=== PATIENT | female | born 1960 | race African-American/Black ===

== ENCOUNTER 2017-05-16 18:56 | Emergency (ER) | payer OTHER ==
[~2017-05-16] VITALS: Ht 149.9 cm; Wt 79.4 kg
[2017-05-16 19:15] VITALS: BP 145/81
[2017-05-16] MEDS ORDERED: ACETAMINOPHEN 325 MG TABLET. PO ONE (19:45)
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
== END 2017-05-16 20:52 | disposition home or self-care (01) ==
LOC: ER 18:56
DX: S06.0X0A Concussion without loss of consciousness, initial encounter (principal); M54.2 Cervicalgia; M54.5 Low back pain; E78.00 Pure hypercholesterolemia, unspecified; F41.9 Anxiety disorder, unspecified; I10 Essential (primary) hypertension; Z90.710 Acquired absence of both cervix and uterus; Z88.0 Allergy status to penicillin; Z88.6 Allergy status to analgesic agent; V87.0XXA Person injured in collision between car and two- or three-wheeled powered vehicle (traffic), initial encounter; Y93.89 Activity, other specified; Y92.89 Other specified places as the place of occurrence of the external cause; Y99.8 Other external cause status
CPT/HCPCS: 70450; 72125; 99284-25

== ENCOUNTER 2018-08-18 15:47 | Emergency (ER) | payer OTHER ==
[~2018-08-18] VITALS: Ht 154.9 cm; Wt 74.8 kg
[~2018-08-18 15:47] MED LIST: ALPR1TAB6 PO; BENZ0.5T32 PO; CLON0.1T PO; LIDO700A39 TD; NORT10CA PO; PARO40TA3 PO; QUET50TA5 PO; TRAM50TA PO; abilify
[2018-08-18 16:40] VITALS: BP 149/74
--- NOTE | 2018-08-18 17:19 | RAD ---
CT Head W/O Contrast: History: HEAD/NECK PAIN AFTER FALL Comparison: December 13, 2017 Axial images were obtained without contrast. The rivero and white matter appears normal and symmetrical for the patients age. There is no mass effect, extraaxial fluid collections or hydrocephalus. There is no gross bleed. There is no focal loss of rivero-white matter distinction to suggest acute ischemia, i.e. stroke. Impression: No acute findings. End impression CT C-Spine without contrast: Clinical History: HEAD/NECK PAIN AFTER FALL Technique: Axial helical images of the cervical spine were obtained without contrast, axial coronal and sagittal reconstruction was performed. Findings: There is no loss of vertebral body stature. There is no prevertebral soft tissue swelling. The vertebral bodies are well aligned. There is straightening of the normal cervical lordosis which can be positional or could be chronic. The C1-C2 relationship is normal. The visualized osseous structures appear normal. Evaluation of the central canal is limited without contrast. There is multiple posterior disc bulges resulting in flattening of the thecal sac. There does not appear to be gross flattening of the cervical cord. Impression: No acute findings. Clinical correlation suggested. PQRS Compliance Statement: One or more of the following individualized dose reduction techniques were utilized for this examination: 1. Automated exposure control 2. Adjustment of the mA and/or kV according to patient size 3. Use of iterative reconstruction technique Electronically signed by: Gurpreet Jurado III, MD (08/18/2018 5:16 PM) [facility]
--- NOTE | 2018-08-18 18:23 | PHYS DOC ---
Past Medical History Past Medical History: Anxiety, Asthma, High Cholesterol, Hypertension, Schizophrenia, Other Additional Past Medical Histor: "heart blockages" Past Surgical History: Hysterectomy, Tonsillectomy, Other Additional Past Surgical Histo: "needs stents" Alcohol Use: None Drug Use: Marijuana Adult General Chief Complaint Chief Complaint: MULTIPLE TRAUMA/FALL HPI HPI Patient is a 58 year old female who presents to the ER with complaints of L shoulder, L upper arm, neck, and low back pain that radiates into her left leg after falling down 12 concrete stairs 2 days ago. Pt states when she landed she was face first striking her forehead on the ground. She reports an unwitnessed LOC and is unsure of the duration. She denies any nausea, vomiting, vison changes, or headache. Currently, she rates her discomfort at a 8 out of 10 on the pain scale. She states she took her last 2 tablets of tylenol #3 6 hours ago. The medication helped for a short period of time. Patient reports a previous tear in her left rotator cuff. Review of Systems Review of Systems Constitutional: Denies fever or chills [] Eyes: Denies change in visual acuity, redness, or eye pain [] HENT: Denies nasal congestion or sore throat [] Respiratory: Denies shortness of breath [] Cardiovascular: Denies chest pain GI: Denies abdominal pain, nausea, vomiting Musculoskeletal: reports left shoulder, left upper arm, and low back pain that radiates to left leg Integument: Denies rash or skin lesions [] Neurologic: Denies headache, focal weakness or sensory changes [] All other systems were reviewed and found to be within normal limits, except as documented in this note. Allergies Allergies Allergies Coded Allergies Type Severity Reaction Last Updated Verified Penicillins Allergy Intermediate 07/23/14 Yes aspirin Allergy Intermediate HIVES 07/23/14 Yes Physical Exam Physical Exam Constitutional: Well developed, well nourished, no acute distress, non-toxic appearance. [] HENT: Normocephalic, atraumatic, bilateral external ears normal, oropharynx moist, no oral exudates, nose normal. [] Eyes: PERRLA, EOMI, conjunctiva normal, no discharge. [] Neck: limited ROM due to pain, diffuse bony tenderness with no palpable deformity, supple, no stridor. [] Cardiovascular:Heart rate regular rhythm, no murmur [] Lungs & Thorax: Bilateral breath sounds clear to auscultation [] Skin: Warm, dry, no erythema, no rash, no bruising, no abrasions Back: No bony tenderness; lateral low back tenderness, Extremities: No cyanosis, no clubbing, ROM intact, no edema, no bruising; tenderness with palpation of left humerus, no palpable deformity [] Neurologic: Alert and oriented X 3, normal motor function, normal sensory function, no focal deficits noted. [] Psychologic: Affect normal, judgement normal, mood normal. [] Current Patient Data Vital Signs Vital Signs Date Time Temp Pulse Resp B/P (MAP) Pulse Ox O2 Delivery O2 Flow Rate FiO2 08/18/18 16:40 97.6 73 16 149/74 (99) 98 Room Air 97.6 EKG EKG [] Radiology/Procedures Radiology/Procedures PROCEDURE: CT HEAD AND CERVICAL SPINE WO CT Head W/O Contrast: History: HEAD/NECK PAIN AFTER FALL Comparison: December 13, 2017 Axial images were obtained without contrast. The rivero and white matter appears normal and symmetrical for the patients age. There is no mass effect, extraaxial fluid collections or hydrocephalus. There is no gross bleed. There is no focal loss of rivero-white matter distinction to suggest acute ischemia, i.e. stroke. Impression: No acute findings. CT C-Spine without contrast: Clinical History: HEAD/NECK PAIN AFTER FALL Technique: Axial helical images of the cervical spine were obtained without contrast, axial coronal and sagittal reconstruction was performed. Findings: There is no loss of vertebral body stature. There is no prevertebral soft tissue swelling. The vertebral bodies are well aligned. There is straightening of the normal cervical lordosis which can be positional or could be chronic. The C1-C2 relationship is normal. The visualized osseous structures appear normal. Evaluation of the central canal is limited without contrast. There is multiple posterior disc bulges resulting in flattening of the thecal sac. There does not appear to be gross flattening of the cervical cord. Impression: No acute findings. Clinical correlation suggested.[] PROCEDURE: CHEST PA & LATERAL PA and lateral chest radiographs 08/18/2018 CLINICAL HISTORY: Patient fell down flight of stairs 2 days ago with chest pain. PA and lateral digital radiographs of chest were obtained. Comparison study is dated 12/16/2017. The cardiac silhouette is borderline enlarged. The thoracic aorta is mildly tortuous. No acute pulmonary infiltrate is seen. No pleural effusion or pneumothorax is noted. Minimal degenerative changes are seen involving the thoracic spine. The osseous structures are grossly intact. IMPRESSION: No acute abnormality is seen. PROCEDURE: LUMBAR SPINE 2-3V Three-view lumbar spine radiographs 08/18/2018 CLINICAL HISTORY: Fall down flight of stairs with low back pain. AP and 2 lateral digital radiographs of the lumbar spine were obtained. Minimal S-shaped curvature of the thoracolumbar spine is seen. No fracture or subluxation of the lumbar vertebrae is seen. Degenerative changes are seen involving the lumbar disc spaces consisting of vertebral endplate sclerosis and minimal anterior and posterior vertebral body osteophyte formation. Degenerative changes are seen involving the facet joints throughout the mid and lower lumbar spine. Calcifications are seen within the pelvis consistent with phleboliths. IMPRESSION: No fracture or subluxation of the lumbar vertebrae seen. PROCEDURE: HUMERUS LEFT Two-view left humerus radiographs 08/18/2018 CLINICAL HISTORY: Fall with injury to the left humerus. AP and lateral digital radiographs of the left humerus were obtained. There is diffuse osteopenia of the visualized bony structures. No acute fracture or dislocation of the left humerus is seen. No radiopaque foreign body is noted. IMPRESSION: No acute fracture or dislocation is seen. Course & Med Decision Making Course & Med Decision Making Pertinent Labs and Imaging studies reviewed. (See chart for details) DX: fall down stairs, cervical pain, low back pain radiating to left leg, and left humerus pain Xrays of lumbar spine, chest, and left humerus were negative for any acute fracture or dislocation, CT head and neck was negative for any acute bleed or fracture. Pt was prescribed naproxen and flexeril. Encouraged to apply ice or heat to sore areas, activity as tolerated, and follow-up with PCP for further evaluation. Pt verbalized an understanding of discharge, medications, follow-up , home care, and return to ED precautions, was in agreement with POC. [] Staff Physician Addendum: I was working in the ER during the course of this patient's visit. I was available for consultation as needed, but I was not directly involved in the care of this patient. Dragon Disclaimer Dragon Disclaimer This electronic medical record was generated, in whole or in part, using a voice recognition dictation system. Departure Departure Impression: Primary Impression: Fall down stairs Additional Impressions: Low back pain radiating to left leg Pain of left humerus Cervical spine pain Disposition: 01 HOME, SELF-CARE Condition: STABLE Referrals: UNKNOWN PCP NAME (PCP) Patient Instructions: Back Pain, Adult, [id number], Contusion, Gugb-[id number], Fall Prevention and Home Safety, [id number] Additional Instructions: Fill prescriptions and use as directed, apply ice or heat to sore areas for discomfort. Follow up with your doctor this week for re-evaluation. Return to the ER if symptoms worsen. Scripts Naproxen (NAPROXEN) 375 Mg Tablet 375 MG PO BID PRN for pa for 10 Days, #20 TAB 0 Refills Prov: LIZZETH DANIEL APRN 08/18/18 Cyclobenzaprine Hcl (CYCLOBENZAPRINE HCL) 10 Mg Tablet 10 MG PO TID PRN for MUSCLE PAIN for 7 Days, #21 TAB 0 Refills Prov: LIZZETH DANIEL APRN 08/18/18 Problem Qualifiers Primary Impression: Fall down stairs Encounter type: initial encounter Qualified Codes: W10.8XXA - Fall (on) ( from) other stairs and steps, initial encounter LIZZETH DANIEL APRN Aug 18, 2018 18:23 LEXX AVENDAÑO MD Aug 21, 2018 06:18
[2018-08-18] MEDS ORDERED: CYCL10TA2 PO (18:50)
[2018-08-18] MEDS ORDERED: NAPR-695 PO (18:50)
--- NOTE | 2018-08-18 19:15 | RAD ---
PA and lateral chest radiographs 08/18/2018 CLINICAL HISTORY: Patient fell down flight of stairs 2 days ago with chest pain. PA and lateral digital radiographs of chest were obtained. Comparison study is dated 12/16/2017. The cardiac silhouette is borderline enlarged. The thoracic aorta is mildly tortuous. No acute pulmonary infiltrate is seen. No pleural effusion or pneumothorax is noted. Minimal degenerative changes are seen involving the thoracic spine. The osseous structures are grossly intact. IMPRESSION: No acute abnormality is seen. Electronically signed by: John Ambriz MD (08/18/2018 7:11 PM) [facility]
--- NOTE | 2018-08-18 19:27 | RAD ---
Two-view left humerus radiographs 08/18/2018 CLINICAL HISTORY: Fall with injury to the left humerus. AP and lateral digital radiographs of the left humerus were obtained. There is diffuse osteopenia of the visualized bony structures. No acute fracture or dislocation of the left humerus is seen. No radiopaque foreign body is noted. IMPRESSION: No acute fracture or dislocation is seen. Electronically signed by: John Ambriz MD (08/18/2018 7:23 PM) [facility]
--- NOTE | 2018-08-18 19:28 | RAD ---
Three-view lumbar spine radiographs 08/18/2018 CLINICAL HISTORY: Fall down flight of stairs with low back pain. AP and 2 lateral digital radiographs of the lumbar spine were obtained. Minimal S-shaped curvature of the thoracolumbar spine is seen. No fracture or subluxation of the lumbar vertebrae is seen. Degenerative changes are seen involving the lumbar disc spaces consisting of vertebral endplate sclerosis and minimal anterior and posterior vertebral body osteophyte formation. Degenerative changes are seen involving the facet joints throughout the mid and lower lumbar spine. Calcifications are seen within the pelvis consistent with phleboliths. IMPRESSION: No fracture or subluxation of the lumbar vertebrae seen. Electronically signed by: John Ambriz MD (08/18/2018 7:25 PM) [facility]
== END 2018-08-18 19:00 | disposition home or self-care (01) ==
LOC: ER 15:47
DX: M25.512 Pain in left shoulder (principal); G89.11 Acute pain due to trauma; M54.2 Cervicalgia; M54.5 Low back pain; E78.00 Pure hypercholesterolemia, unspecified; J45.909 Unspecified asthma, uncomplicated; I10 Essential (primary) hypertension; F20.9 Schizophrenia, unspecified; F41.9 Anxiety disorder, unspecified; Z90.710 Acquired absence of both cervix and uterus; Z95.5 Presence of coronary angioplasty implant and graft; Z88.0 Allergy status to penicillin; Z88.6 Allergy status to analgesic agent; W10.8XXA Fall (on) (from) other stairs and steps, initial encounter; Y93.89 Activity, other specified; Y92.89 Other specified places as the place of occurrence of the external cause; Y99.8 Other external cause status
CPT/HCPCS: 70450; 71046; 72100; 72125; 73060; 99284-25

== ENCOUNTER 2019-06-08 09:56 | Emergency (ER) | payer MEDICARE, OTHER ==
[~2019-06-08] VITALS: Ht 154.9 cm; Wt 65.3 kg
[~2019-06-08 09:56] MED LIST changes: +CYCL10TA2 PO; +LIDO700A21 TD; -LIDO700A39 TD; +NAPR-695 PO
[2019-06-08] MEDS ORDERED: IV NORMAL SALINE 1000ML BAG 1,000 ML IV ONE (10:15)
--- NOTE | 2019-06-08 10:24 | PHYS DOC ---
Past Medical History Past Medical History: Anxiety, Asthma, High Cholesterol, Hypertension, Schizophrenia, Other Additional Past Medical Histor: "heart blockages" Past Surgical History: Hysterectomy, Tonsillectomy, Other Additional Past Surgical Histo: "needs stents" Alcohol Use: None Drug Use: Marijuana Adult General Chief Complaint Chief Complaint: DIZZY/LIGHT HEADED HPI HPI Patient is a 59-year-old female who presents to the emergency department for evaluation. She has numerous medical complaints. She states that she has been out of all of her medication for about a week, she states she takes medication for diabetes, hypertension, and high blood pressure. She did feel a little lightheaded this morning. She states she is having some "chest pain", which is actually left upper quadrant abdominal pain, which is where she localizes the pain. She has had some generalized nausea. She denies any headache, vision changes, numbness, or focal weakness. She does admit to polyuria and polydipsia. There are no alleviating or exacerbating factors to her symptoms. She states that she is scheduled to see her PCP this coming Sunday, and her medications will not be refilled until she is able to see her PCP, per her PCP's office, she states. Review of Systems Review of Systems Constitutional: Denies fever or chills [] Eyes: Denies change in visual acuity, redness, or eye pain [] HENT: Denies nasal congestion or sore throat [] Respiratory: Denies cough or shortness of breath [] Cardiovascular: No additional information not addressed in HPI [] GI: Denies vomiting, bloody stools or diarrhea [] : Denies dysuria or hematuria [] Musculoskeletal: Denies back pain or joint pain [] Integument: Denies rash or skin lesions [] Neurologic: Denies headache, focal weakness or sensory changes [] Endocrine: Reports polyuria and polydipsia [] All other systems were reviewed and found to be within normal limits, except as documented in this note. Current Medications Current Medications Current Medications Medications (Trade) Dose Ordered Sig/Neeta Start Time Stop Time Status Last Admin Dose Admin Sodium Chloride 1,000 ml @ 1,000 mls/hr 1X ONCE 06/08/19 10:15 06/08/19 11:14 DC 06/08/19 10:42 1,000 MLS/HR Allergies Allergies Allergies Coded Allergies Type Severity Reaction Last Updated Verified Penicillins Allergy Intermediate 07/23/14 Yes aspirin Allergy Intermediate HIVES 07/23/14 Yes Physical Exam Physical Exam PHYSICAL EXAM: CONSTITUTIONAL: Well developed, well nourished HEAD: normocephalic, atraumatic EENT: PERRL, EOMI. Conjunctivae normal color, sclerae non-icteric; mildly dry mucous membranes. NECK: Supple, non-tender; no meningismus. LUNGS: Lungs CTA, breathing even and unlabored. Normal air movement. HEART: Regular rate and rhythm, no murmur CHEST: No deformity; non-tender ABDOMEN: The abdomen is soft, there is focal left upper quadrant abdominal tenderness to palpation, without rebound or guarding. The remainder the abdomen is soft and non-tender, no masses or bruits. EXTREM: Normal ROM; no deformity, no calf tenderness. Normal pulses palpable in all extremities. There is no pedal edema. SKIN: No rash; no diaphoresis NEURO: Alert; normal speech and cognition; CN's grossly intact; strength grossly intact without focal deficit. BACK: No CVA TTP. Current Patient Data Vital Signs Vital Signs Date Time Temp Pulse Resp B/P (MAP) Pulse Ox O2 Delivery O2 Flow Rate FiO2 06/08/19 10:17 98.4 83 16 145/85 (105) 98 Room Air 98.4 Lab Values Laboratory Tests Test 06/08/19 10:14 06/08/19 10:34 06/08/19 11:25 06/08/19 11:55 Glucose (Fingerstick) 171 mg/dL (70-99) H White Blood Count 12.0 x10^3/uL (4.0-11.0) H Red Blood Count 4.33 x10^6/uL (3.50-5.40) Hemoglobin 13.2 g/dL (12.0-15.5) Hematocrit 39.5 % (36.0-47.0) Mean Corpuscular Volume 91 fL (79-100) Mean Corpuscular Hemoglobin 31 pg (25-35) Mean Corpuscular Hemoglobin Concent 33 g/dL (31-37) Red Cell Distribution Width 16.7 % (11.5-14.5) H Platelet Count 268 x10^3/uL (140-400) Neutrophils (%) (Auto) 76 % (31-73) H Lymphocytes (%) (Auto) 20 % (24-48) L Monocytes (%) (Auto) 4 % (0-9) Eosinophils (%) (Auto) 1 % (0-3) Basophils (%) (Auto) 0 % (0-3) Neutrophils # (Auto) 9.1 x10^3/uL (1.8-7.7) H Lymphocytes # (Auto) 2.4 x10^3/uL (1.0-4.8) Monocytes # (Auto) 0.4 x10^3/uL (0.0-1.1) Eosinophils # (Auto) 0.1 x10^3/uL (0.0-0.7) Basophils # (Auto) 0.0 x10^3/uL (0.0-0.2) Sodium Level 139 mmol/L (136-145) Potassium Level 3.7 mmol/L (3.5-5.1) Chloride Level 103 mmol/L (98-107) Carbon Dioxide Level 25 mmol/L (21-32) Anion Gap 11 (6-14) Blood Urea Nitrogen 13 mg/dL (7-20) Creatinine 1.0 mg/dL (0.6-1.0) Estimated GFR (Cockcroft-Gault) 68.2 BUN/Creatinine Ratio 13 (6-20) Glucose Level 157 mg/dL (70-99) H Calcium Level 9.1 mg/dL (8.5-10.1) Magnesium Level 1.7 mg/dL (1.8-2.4) L Total Bilirubin 0.3 mg/dL (0.2-1.0) Aspartate Amino Transferase (AST) 20 U/L (15-37) Alanine Aminotransferase (ALT) 28 U/L (14-59) Alkaline Phosphatase 89 U/L (46-116) Troponin I Quantitative < 0.017 ng/mL (0.000-0.055) TJ-Htx-Z-Type Natriuretic Peptide 85 pg/mL (0-124) Total Protein 8.0 g/dL (6.4-8.2) Albumin 3.6 g/dL (3.4-5.0) Albumin/Globulin Ratio 0.8 (1.0-1.7) L Lipase 95 U/L (73-393) Acetone Level Neg (NEG) O2 Saturation 96 % (92-99) Arterial Blood pH 7.40 (7.35-7.45) Arterial Blood pCO2 at Patient Temp 39 mmHg (35-46) Arterial Blood pO2 at Patient Temp 87 mmHg (65-108) Arterial Blood HCO3 24 mmol/L (21-28) Arterial Blood Base Excess -1 mmol/L (-3-3) FiO2 21 Urine Collection Type Unknown Urine Color Yellow Urine Clarity Clear Urine pH 5.0 Urine Specific Carr 1.010 Urine Protein Negative mg/dL (NEG-TRACE) Urine Glucose (UA) Negative mg/dL (NEG) Urine Ketones (Stick) Negative mg/dL (NEG) Urine Blood Negative (NEG) Urine Nitrite Negative (NEG) Urine Bilirubin Negative (NEG) Urine Urobilinogen Dipstick 0.2 mg/dL (0.2 mg/dL) Urine Leukocyte Esterase Moderate (NEG) Urine RBC Occ /HPF (0-2) Urine WBC 5-10 /HPF (0-4) Urine Squamous Epithelial Cells Mod /LPF Urine Bacteria Moderate /HPF (0-FEW) Urine Mucus Slight /LPF Laboratory Tests 06/08/19 10:34 Laboratory Tests 06/08/19 10:34 EKG EKG Normal sinus rhythm at a rate of 81 beats for minute, left axis deviation, normal intervals, anterior T-wave inversion without acute ischemic ST/T changes, the EKG is unchanged compared to the patient's prior EKG.[] Radiology/Procedures Radiology/Procedures [PROCEDURE: PORTABLE CHEST 1V PROCEDURE: PORTABLE CHEST 1V CLINICAL INDICATION: Chest pain. COMPARISON: None FINDINGS: No pneumothorax identified. Cardiac and mediastinal contours unremarkable. No pulmonary consolidation or acute airspace disease. No acute osseous abnormalities identified. IMPRESSION: No pulmonary consolidation or acute airspace disease. ] Course & Med Decision Making Course & Med Decision Making Pertinent Labs and Imaging studies reviewed. (See chart for details) []1220: The patient's condition remains stable. The only medications she is certain that she is on Xanax, and metformin. She states she has metformin at home, adequate supply, and I informed the patient that I would not write for a prescription for Xanax from the emergency department. I stressed the importance of close follow-up with her PCP, and their office could call in refills of her medications until he can see her Sunday as scheduled, and return precautions were discussed in detail. Jose Disclaimer Dragon Disclaimer This electronic medical record was generated, in whole or in part, using a voice recognition dictation system. Departure Departure Impression: Primary Impression: Dizziness Additional Impression: UTI (urinary tract infection) Disposition: HOME, SELF-CARE Condition: STABLE Referrals: UNKNOWN PCP NAME (PCP) Patient Instructions: Dizziness, Urinary Tract Infection Scripts Sulfamethoxazole/Trimethoprim (BACTRIM DS TABLET) 1 Each Tablet 1 TAB PO BID, #14 TAB Prov: ROSENDA LUTHER MD 06/08/19 Problem Qualifiers ROSENDA LUTHER MD Jun 08, 2019 10:24
[2019-06-08 10:55] LABS: CALCIUM 9.1 mg/dL (8.5-10.1); GFR 68.2; POTASSIUM 3.7 mmol/L (3.5-5.1)
[2019-06-08 10:59] LABS: BASO % 0 % (0-3); EOS # 0.1 x10^3/uL (0.0-0.7); EOS % 1 % (0-3); HEMATOCRIT 39.5 % (36.0-47.0); HEMOGLOBIN 13.2 g/dL (12.0-15.5); LYMPH # 2.4 x10^3/uL (1.0-4.8); LYMPH % 20 % (24-48); MEAN CORPUSCULAR HEMOGLOBIN 31 pg (25-35); MEAN CORPUSCULAR HGB CONC 33 g/dL (31-37); MEAN CORPUSCULAR VOLUME 91 fL (79-100); MONO # 0.4 x10^3/uL (0.0-1.1); MONO % 4 % (0-9); NEUT # 9.1 x10^3/uL (1.8-7.7); NEUT % 76 % (31-73); PLATELET COUNT 268 x10^3/uL (140-400); RED BLOOD COUNT 4.33 x10^6/uL (3.50-5.40); RED CELL DISTRIBUTION WIDTH 16.7 % (11.5-14.5)
[2019-06-08 11:01] LABS: ALBUMIN 3.6 g/dL (3.4-5.0); ALBUMIN/GLOBULIN RATIO 0.8 (1.0-1.7); MAGNESIUM 1.7 mg/dL (1.8-2.4); TOTAL BILIRUBIN 0.3 mg/dL (0.2-1.0)
--- NOTE | 2019-06-08 11:04 | RAD ---
PROCEDURE: PORTABLE CHEST 1V CLINICAL INDICATION: Chest pain. COMPARISON: None FINDINGS: No pneumothorax identified. Cardiac and mediastinal contours unremarkable. No pulmonary consolidation or acute airspace disease. No acute osseous abnormalities identified. IMPRESSION: No pulmonary consolidation or acute airspace disease. Electronically signed by: Sridhar Pineda DO (06/08/2019 11:01 AM) [facility]
[2019-06-08 11:27] LABS: BASE EXCESS ABG -1 mmol/L (-3-3); HCO3 ABG 24 mmol/L (21-28); PCO2 ABG 39 mmHg (35-46); PO2 ABG 87 mmHg (65-108); SAT O2 ABG 96 % (92-99)
[2019-06-08 11:29] LABS: FIO2 ABG 21
[2019-06-08 12:01] LABS: BILIRUBIN,URINE NEGATIVE (NEG); CLARITY,URINE CLEAR; COLOR,URINE YELLOW; NITRITE,URINE NEGATIVE (NEG); PROTEIN,URINE NEGATIVE (NEG-TRACE); UROBILINOGEN,URINE 0.2 mg/dL (0.2 mg/dL)
[2019-06-08 12:08] LABS: SQUAMOUS EPITHELIAL CELL,UR MOD /LPF
[2019-06-08 12:09] LABS: BACTERIA,URINE MODERATE /HPF (0-FEW)
[2019-06-08 12:10] LABS: RBC,URINE OCC /HPF (0-2)
[2019-06-08] MEDS ORDERED: SULF1TAB24 PO (12:23)
[2019-06-08 12:45] VITALS: BP 134/71
--- NOTE | 2019-06-08 18:04 | EKG ---
[facility] [address] [place] [address] Test Date: 2019-06-08 Test Time: 10:33:52 Pat Name: JOE YOST Department: Room: Gender: F Transport Medic: : 1960 Requested By: ROSENDA LUTHER Order Number: [id number] Reading MD: Measurements Intervals [place] Rate: 81 P: 52 GA: 230 QRS: -36 QRSD: 70 T: 7 QT: 378 QTc: 440 Interpretive Statements SINUS RHYTHM PROLONGED GA INTERVAL ABNORMAL LEFT AXIS DEVIATION R-S TRANSITION ZONE IN V LEADS DISPLACED TO THE RIGHT LEFT ANTERIOR FASCICULAR BLOCK QRS(T) CONTOUR ABNORMALITY CONSIDER ANTEROSEPTAL MYOCARDIAL DAMAGE ABNORMAL ECG RI6.01 Unconfirmed report No previous ECG available for comparison
== END 2019-06-08 13:01 | disposition home or self-care (01) ==
LOC: ER 09:56
DX: R42 Dizziness and giddiness (principal); N39.0 Urinary tract infection, site not specified; J45.909 Unspecified asthma, uncomplicated; E78.00 Pure hypercholesterolemia, unspecified; I10 Essential (primary) hypertension; F41.9 Anxiety disorder, unspecified; F20.9 Schizophrenia, unspecified; Z90.710 Acquired absence of both cervix and uterus; Z88.0 Allergy status to penicillin; Z88.6 Allergy status to analgesic agent
CPT/HCPCS: 36415; 36600; 71045; 80053; 81001; 82010; 82805; 82962; 83690; 83735; 83880; 84484; 85025; 87086; 93005; 96360; 99285; J7030

== ENCOUNTER 2019-11-04 17:10 | Emergency (ER) | payer MEDICARE, OTHER ==
[~2019-11-04] VITALS: Ht 149.9 cm; Wt 66.7 kg
[~2019-11-04 17:10] MED LIST changes: +SULF1TAB24 PO
[2019-11-04 17:40] VITALS: BP 132/67
[2019-11-04] MEDS ORDERED: fentaNYL PF VIAL 100 MCG/2 ML VIAL IV STA (18:05)
[2019-11-04] MEDS ORDERED: fentaNYL PF VIAL 100 MCG/2 ML VIAL IM ONE (18:15)
--- NOTE | 2019-11-04 18:21 | PHYS DOC ---
Past Medical History Past Medical History: Anxiety, Asthma, High Cholesterol, Hypertension, Sc hizophrenia, Other Additional Past Medical Histor: "heart blockages" Past Surgical History: Hysterectomy, Tonsillectomy, Other Additional Past Surgical Histo: "needs stents" Alcohol Use: None Drug Use: Marijuana Adult General Chief Complaint Chief Complaint: LOWEREXTREMITY INJURY [facility] HPI Patient is a 59 year old female who presents with a fall down steps around 5 steps that happened earlier today around 4 clock p.m. The patient has a history of dementia and she has frequent falls due to the dementia. She rates her pain as 10 out of 10 in severity and sharp. She also complains some neck pain. She reports right leg pain from femur down as well. Review of Systems Review of Systems Constitutional: Denies fever or chills [] Eyes: Denies change in visual acuity, redness, or eye pain [] HENT: Reports neck pain. Respiratory: Denies cough or shortness of breath [] Cardiovascular: No additional information not addressed in HPI [] GI: Denies abdominal pain, nausea, vomiting, bloody stools or diarrhea [] : Denies dysuria or hematuria [] Musculoskeletal: Reports femur, knee, tib/fib, and ankle pain. Integument: Denies rash or skin lesions [] Neurologic: Denies headache, focal weakness or sensory changes [] Endocrine: Denies polyuria or polydipsia [] Complete systems were reviewed and found to be within normal limits, except as documented in this note. Current Medications Current Medications Current Medications Medications (Trade) Dose Ordered Sig/Neeta Start Time Stop Time Status Last Admin Dose Admin Fentanyl Citrate (Fentanyl 2ml Vial) 50 mcg 1X ONCE 11/04/19 18:15 11/04/19 18:16 DC 11/04/19 18:33 50 MCG Allergies Allergies Allergies Coded Allergies Type Severity Reaction Last Updated Verified Penicillins Allergy Intermediate 07/23/14 Yes aspirin Allergy Intermediate HIVES 07/23/14 Yes Physical Exam Physical Exam Constitutional: Well developed, well nourished, no acute distress, non-toxic appearance. [] HENT: Normocephalic, atraumatic, bilateral external ears normal, oropharynx moist, no oral exudates, nose normal. [] Eyes: PERRLA, EOMI, conjunctiva normal, no discharge. [] Neck: c-spine tenderness, no stepoffs, supple, no stridor. [] Cardiovascular:Heart rate regular rhythm, no murmur [] Lungs & Thorax: Bilateral breath sounds clear to auscultation [] Abdomen: Bowel sounds normal, soft, no tenderness, no masses, no pulsatile masses. [] Skin: Warm, dry, no erythema, no rash. [] Back: No tenderness, no CVA tenderness. [] Extremities: Tenderness to R leg, edema to lateral ankle. Neurologic: Alert and oriented X 3, normal motor function, normal sensory function, no focal deficits noted. [] Psychologic: Affect normal, judgement reduced (family at bedside), mood normal. [] Current Patient Data Vital Signs Vital Signs Date Time Temp Pulse Resp B/P (MAP) Pulse Ox O2 Delivery O2 Flow Rate FiO2 11/04/19 17:40 98.0 62 16 132/67 (88) 99 Room Air 98.0 EKG EKG [] Radiology/Procedures Radiology/Procedures [][facility] [address] [place] [address] IMAGING REPORT Signed PATIENT: JOE YOSTCCOUNT: [id number] : 1960 LOCATION: ER AGE: 59 SEX: F EXAM STATUS: REG ER ORD. PHYSICIAN: VARINDER PAULSON APRN REASON: fall, HEAD AND NECK PAIN PROCEDURE: CT HEAD AND CERVICAL SPINE WO RS Compliance Statement: One or more of the following individualized dose reduction techniques were utilized for this examination: 1. Automated exposure control 2. Adjustment of the mA and/or kV according to patient size 3. Use of iterative reconstruction technique CT HEAD AND CERVICAL SPINE WITHOUT CONTRAST History: Fall, head and neck pain. Comparison: CT head and cervical spine without contrast August 18, 2018. Procedure: Axial images are obtained of the head from the skull base through the vertex without IV contrast. Noncontrast helical CT of the cervical spine was performed. Axial, sagittal, and coronal reconstructions were obtained. Findings: The ventricles and sulci are normal for the patient's age. No mass-effect, midline shift, hemorrhage or obvious acute infarction is identified. Basilar cisterns are patent. Bone windows demonstrate no significant calvarial abnormality. The visualized paranasal sinuses are clear. Mastoid air cells are well aerated. There is no evidence of acute fracture or acute malalignment of the cervical spine. Alignment is maintained. No significant disc space narrowing. The facet joints are intact. Craniovertebral junction is maintained. Visualized soft tissues of the neck demonstrate no significant abnormalities. The visualized lung apices are clear. IMPRESSION: 1. No acute intracranial abnormality. 2. No acute fracture of the cervical spine. Electronically signed by: Valdemar Garcia MD (11/04/2019 6:56 PM) [facility] DICTATED and SIGNED BY: VALDEMAR GARCIA MD DATE: 11/04/19 5339 Course & Med Decision Making Course & Med Decision Making Pertinent Labs and Imaging studies reviewed. (See chart for details) Will get imaging of R leg and head/neck. Imaging is negative. Will d/c home to follow up with primary care physician. Jose Disclaimer Jose Disclaimer This electronic medical record was generated, in whole or in part, using a voice recognition dictation system. Departure Departure Impression: Primary Impression: Fall down stairs Disposition: 01 HOME, SELF-CARE Condition: STABLE Referrals: UNKNOWN PCP NAME (PCP) Patient Instructions: Fall Prevention and Home Safety Additional Instructions: Thank you for visiting [facility]. We appreciate you trusting us with your care. If any additional problems come up don't hesitate to return to visit us. Please follow up with your primary care provider so they can plan additional care if needed and know about the problem that you had. If symptoms worsen come back to the Emergency Department. Any concerning symptoms that start such as chest pain, shortness of air, weakness or numbness on one side of the body, running high fevers or any other concerning symptoms return to the ER. VARINDER PAULSON APRN Nov 04, 2019 18:21
--- NOTE | 2019-11-04 18:59 | RAD ---
PQRS Compliance Statement: One or more of the following individualized dose reduction techniques were utilized for this examination: 1. Automated exposure control 2. Adjustment of the mA and/or kV according to patient size 3. Use of iterative reconstruction technique CT HEAD AND CERVICAL SPINE WITHOUT CONTRAST History: Fall, head and neck pain. Comparison: CT head and cervical spine without contrast August 18, 2018. Procedure: Axial images are obtained of the head from the skull base through the vertex without IV contrast. Noncontrast helical CT of the cervical spine was performed. Axial, sagittal, and coronal reconstructions were obtained. Findings: The ventricles and sulci are normal for the patient's age. No mass-effect, midline shift, hemorrhage or obvious acute infarction is identified. Basilar cisterns are patent. Bone windows demonstrate no significant calvarial abnormality. The visualized paranasal sinuses are clear. Mastoid air cells are well aerated. There is no evidence of acute fracture or acute malalignment of the cervical spine. Alignment is maintained. No significant disc space narrowing. The facet joints are intact. Craniovertebral junction is maintained. Visualized soft tissues of the neck demonstrate no significant abnormalities. The visualized lung apices are clear. IMPRESSION: 1. No acute intracranial abnormality. 2. No acute fracture of the cervical spine. Electronically signed by: Valdemra Holt MD (11/04/2019 6:56 PM) [facility]
--- NOTE | 2019-11-05 03:48 | RAD ---
TIBIA FIBULA RIGHT, FOOT RIGHT 3V, ANKLE RIGHT 3V, KNEE RIGHT 3V DATE: 11/04/2019 6:05 PM INDICATION: Mechanical fall COMPARISON: None. FINDINGS: Ankle: Acute fracture of the lateral malleolus. Ankle joint is congruent. Lateral soft tissue swelling. Tibia/fibula: Lateral malleolus fracture as above. Proximal tibia fibula intact. Knee: No acute fracture. Knee joint is maintained. No knee joint effusion. Foot: No acute fracture. Moderate degenerative changes of the first MTP joint and first IP joint. IMPRESSION: Acute fracture of the tip of the lateral malleolus. Electronically signed by: Papi Boss MD (11/05/2019 3:45 AM) [id number]
== END 2019-11-04 19:49 | disposition home or self-care (01) ==
LOC: ER 17:10
DX: M79.604 Pain in right leg (principal); M25.571 Pain in right ankle and joints of right foot; M54.2 Cervicalgia; R29.6 Repeated falls; F41.9 Anxiety disorder, unspecified; J45.909 Unspecified asthma, uncomplicated; E78.00 Pure hypercholesterolemia, unspecified; I10 Essential (primary) hypertension; F20.9 Schizophrenia, unspecified; F03.90 Unspecified dementia, unspecified severity, without behavioral disturbance, psychotic disturbance, mood disturbance, and anxiety; Z88.0 Allergy status to penicillin; Z88.6 Allergy status to analgesic agent; W10.8XXA Fall (on) (from) other stairs and steps, initial encounter; Y93.89 Activity, other specified; Y92.89 Other specified places as the place of occurrence of the external cause; Y99.8 Other external cause status
CPT/HCPCS: 70450; 72125; 73562; 73590; 73610; 73630; 96372; 99284; J3010; 73552

== ENCOUNTER 2020-09-29 14:47 | Emergency (ER) | payer MEDICARE, MEDICAID ==
[~2020-09-29] VITALS: Ht 167.6 cm; Wt 65.0 kg
[2020-09-29] MEDS ORDERED: ONDANSETRON PF 4 MG/2 ML VIAL. IVP ONE (16:15)
[2020-09-29] MEDS ORDERED: IV NORMAL SALINE 1000ML BAG 1,000 ML IV ONE (16:15)
--- NOTE | 2020-09-29 16:28 | PHYS DOC ---
Past Medical History Past Medical History: Anxiety, Asthma, High Cholesterol, Hypertension, Sc hizophrenia, Other Additional Past Medical Histor: "heart blockages" (CHUN KELLY MD) Past Surgical History: Hysterectomy, Tonsillectomy, Other Additional Past Surgical Histo: "needs stents" (CHUN KELLY MD) Smoking Status: Never Smoker Alcohol Use: None Drug Use: Marijuana (CHUN KELLY MD) General Adult EDM: Chief Complaint: ABDOMINAL PAIN HPI: HPI: Patient is a 60 year old female who presents with 10 days of abdominal pain. Patient states she is not having nausea vomiting and persistent pain. Patient describes the pain as a discomfort and cramping and in the mid abdomen that is nonradiating. Patient had nausea vomiting. Patient has any fevers chills but has had a mild cough. Pain is described as moderate in severity (CHUN KELLY MD) Review of Systems: Review of Systems: Constitutional: Denies fever or chills. [] Eyes: Denies change in visual acuity. [] HENT: Denies nasal congestion or sore throat. [] Respiratory: Complains of cough but no shortness of breath shortness of breath. [] Cardiovascular: Denies chest pain or edema. [] GI: Complains of abdominal pain with nausea vomiting : Denies dysuria. [] Musculoskeletal: Denies back pain or joint pain. [] Integument: Denies rash. [] Neurologic: Denies headache, focal weakness or sensory changes. [] Endocrine: Denies polyuria or polydipsia. [] Lymphatic: Denies swollen glands. [] Psychiatric: Denies depression or anxiety. [] (CHUN KELLY MD) Heart Score: Risk Factors: Risk Factors: DM, Current or recent (<one month) smoker, HTN, HLP, family hist ory of CAD, obesity. Risk Scores: Score 0 - 3: 2.5% MACE over next 6 weeks - Discharge Home Score 4 - 6: 20.3% MACE over next 6 weeks - Admit for Clinical Observation Score 7 - 10: 72.7% MACE over next 6 weeks - Early Invasive Strategies (CHUN KELLY MD) Current Medications: Current Medications Sodium Chloride 1,000 ml @ 1,000 mls/hr 1X ONCE IV Last administered on 09/29/20at 17:48; Start 09/29/20 at 16:15; Stop 09/29/20 at 17:14; Status DC Ondansetron HCl (Zofran) 4 mg 1X ONCE IVP Last administered on 09/29/20at 17:47; Start 09/29/20 at 16:15; Stop 09/29/20 at 16:16; Status DC Iohexol (Omnipaque 300 Mg/ml) 75 ml 1X ONCE IV Last administered on 09/29/20at 17:30; Start 09/29/20 at 17:30; Stop 09/29/20 at 17:31; Status DC Info (CONTRAST GIVEN -- Rx MONITORING) 1 each PRN DAILY PRN MC SEE COMMENTS; Start 09/29/20 at 17:30; Stop 10/01/20 at 17:29 Active Scripts Active Bactrim Ds Tablet (Sulfamethoxazole/Trimethoprim) 1 Each Tablet 1 Tab PO BID Naproxen 375 Mg Tablet 375 Mg PO BID PRN 10 Days Cyclobenzaprine Hcl 10 Mg Tablet 10 Mg PO TID PRN 7 Days Lidocaine PATCH (Lidocaine) 1 Each Adh..patch 1 Patch TD DAILY Tramadol Hcl 50 Mg Tablet 50 Mg PO PRN Q6HRS PRN Nortriptyline Hcl 10 Mg Capsule 10 Mg PO QHS 1 tab HS for 10 days, then increase to 2 tabs HS Reported [abilify] QMONTH Seroquel (Quetiapine Fumarate) 50 Mg Tablet 1 Tab PO QHS Paroxetine Hcl 40 Mg Tablet 1 Tab PO HS Alprazolam 1 Mg Tablet 1 Tab PO TID Clonidine Hcl 0.1 Mg Tablet 0.1 Mg PO TID Benztropine Mesylate 0.5 Mg Tablet 1 Tab PO BID Current Medications Medications (Trade) Dose Ordered Sig/Neeta Start Time Stop Time Status Last Admin Dose Admin Ondansetron HCl (Zofran) 4 mg 1X ONCE 09/29/20 16:15 09/29/20 16:16 DC Sodium Chloride 1,000 ml @ 1,000 mls/hr 1X ONCE 09/29/20 16:15 09/29/20 17:14 (CHUN KELLY MD) Allergies: Allergies: Allergies Coded Allergies Type Severity Reaction Last Updated Verified Penicillins Allergy Intermediate 07/23/14 Yes aspirin Allergy Intermediate HIVES 07/23/14 Yes (CHUN KELLY MD) Physical Exam: PE: Constitutional: Well developed, well nourished, no acute distress, non-toxic appearance. [] HENT: Normocephalic, atraumatic, bilateral external ears normal, no trismus, nose normal. [] Eyes: PERRLA, EOMI, conjunctiva normal, no discharge. [] Neck: Normal range of motion, no tenderness, supple, no stridor. [] Cardiovascular:Heart rate regular rhythm, no murmur [] Lungs & Thorax: Bilateral breath sounds clear to auscultation [] Abdomen: Soft with mild abdominal tenderness in the mid abdomen near the hernia defect. There is no hernia at this time. No masses, no pulsatile masses. [] No guarding or rebound Skin: Warm, dry, no erythema, no rash. [] Back: No tenderness, no CVA tenderness. [] Extremities: No tenderness, no cyanosis, no clubbing, ROM intact, no edema. [] Neurologic: Alert and oriented X 3, normal motor function, normal sensory function, no focal deficits noted. [] Psychologic: Affect normal, judgement normal, mood normal. [] (CHUN KELLY MD) Current Patient Data: Labs: Laboratory Tests Test 09/29/20 16:55 Sodium Level 140 mmol/L Potassium Level 3.8 mmol/L Chloride Level 104 mmol/L Carbon Dioxide Level 22 mmol/L Anion Gap 14 Blood Urea Nitrogen 11 mg/dL Creatinine 0.8 mg/dL Estimated GFR (Cockcroft-Gault) 87.9 BUN/Creatinine Ratio 14 Glucose Level 95 mg/dL Calcium Level 9.1 mg/dL Total Bilirubin 0.3 mg/dL Aspartate Amino Transf (AST/SGOT) 19 U/L Alanine Aminotransferase (ALT/SGPT) 37 U/L Alkaline Phosphatase 76 U/L Total Protein 7.1 g/dL Albumin 3.4 g/dL Albumin/Globulin Ratio 0.9 Lipase 76 U/L Current Medications Medications (Trade) Dose Ordered Sig/Neeta Route PRN Reason Start Time Stop Time Status Last Admin Dose Admin Sodium Chloride 1,000 ml @ 1,000 mls/hr 1X ONCE IV 09/29/20 16:15 09/29/20 17:14 DC 09/29/20 17:48 Ondansetron HCl (Zofran) 4 mg 1X ONCE IVP 09/29/20 16:15 09/29/20 16:16 DC 09/29/20 17:47 Iohexol (Omnipaque 300 Mg/ml) 75 ml 1X ONCE IV 09/29/20 17:30 09/29/20 17:31 DC Info (CONTRAST GIVEN -- Rx MONITORING) 1 each PRN DAILY PRN MC SEE COMMENTS 09/29/20 17:30 10/01/20 17:29 Vital Signs: Vital Signs Date Time Temp Pulse Resp B/P (MAP) Pulse Ox O2 Delivery O2 Flow Rate FiO2 09/29/20 15:26 98.4 78 22 126/89 (101) 99 Room Air 98.4 (CHUN KELLY MD) EKG: EKG: [] (CHUN KELLY MD) Radiology/Procedures: Radiology/Procedures: [][facility] [address] [place] [address] IMAGING REPORT Signed PATIENT: JOE YOST: [id number] : 1960 LOCATION: ER AGE: 60 SEX: F EXAM STATUS: REG ER ORD. PHYSICIAN: CHUN KELLY MD REASON: cough 11 PROCEDURE: PORTABLE CHEST 1V Exam: Chest one view INDICATION: Cough TECHNIQUE: Frontal view of the chest Comparisons: 06/08/2019 FINDINGS: The cardiomediastinal silhouette and pulmonary vessels are within normal limits. The lung and pleural spaces are clear. IMPRESSION: No acute cardiopulmonary process. Electronically signed by: Nohemy Gaspar MD (09/29/2020 4:59 PM) [facility] DICTATED and SIGNED BY: NOHEMY GASPAR MD DATE: 09/29/20 7827 (CHUN KELLY MD) Radiology/Procedures: IMAGING REPORT Signed PATIENT: JOE YOST: [id number] : 1960 LOCATION: ER AGE: 60 SEX: F EXAM STATUS: REG ER ORD. PHYSICIAN: CHUN KELLY MD REASON: abd pain, hernia PROCEDURE: CT ABD PELV W/ IV CONTRST ONLY CT scan abdomen and pelvis with contrast 09/19/2020 CLINICAL HISTORY: Abdominal pain. TECHNIQUE: After the intravenous administration of 75 cc of Omnipaque 300 only, contiguous, 5 mm axial sections were obtained through the abdomen and pelvis. One or more of the following individualized dose reduction techniques were utilized for this study: 1. Automated exposure control. 2. Adjustment of the mA and/or kV according to patient size. 3. Use of iterative reconstruction technique. FINDINGS: Comparison study is dated 05/08/2010. Images through the lung bases demonstrate minimal dependent subsegmental atelectasis bilaterally. The liver parenchyma has a decreased attenuation consistent with fatty infiltration. The spleen, pancreas, adrenal glands and kidneys are within normal limits. The abdominal aorta tapers normally. The gallbladder is well-distended. No free fluid or free air is seen within the abdomen. Air and stool are seen throughout the colon. There is no evidence of bowel obstruction. The patient appears to be post appendectomy. Multiple small rounded areas of attenuation are seen within the subcutaneous fat of the gluteal regions bilaterally which likely reflect injection granulomas. A 4.3 cm rounded low-attenuation lesion is seen within the subcutaneous fat of the right gluteal region beneath the skin surface which may represent a sebaceous cyst. Images through the pelvis demonstrate the urinary bladder distended with urine. Calcifications are seen within the pelvis consistent with phleboliths. No free fluid is noted. Minimal S-shaped curvature of the thoracolumbar spine is seen. Degenerative changes are seen involving the lower thoracic and throughout the lumbar spine along with both hips. IMPRESSION: No acute abnormality is seen. Electronically signed by: John Ambriz MD (09/29/2020 6:34 PM) [id number] DICTATED and SIGNED BY: JOHN AMBRIZ MD DATE: 09/29/201833 IMAGING REPORT Signed PATIENT: JOE YOST YACCOUNT: [id number] : 1960 LOCATION: ER AGE: 60 SEX: F EXAM STATUS: REG ER ORD. PHYSICIAN: CHUN KELLY MD REASON: cough 11 PROCEDURE: PORTABLE CHEST 1V Exam: Chest one view INDICATION: Cough TECHNIQUE: Frontal view of the chest Comparisons: 06/08/2019 FINDINGS: The cardiomediastinal silhouette and pulmonary vessels are within normal limits. The lung and pleural spaces are clear. IMPRESSION: No acute cardiopulmonary process. Electronically signed by: Nohemy Gaspar MD (09/29/2020 4:59 PM) [facility] DICTATED and SIGNED BY: NOHEMY GASPAR MD DATE: 09/29/201658 (LAMAR,AUBREY Estrada DO) Course & Med Decision Making: Course & Med Decision Making Pertinent Labs and Imaging studies reviewed. (See chart for details) [] 60-year-old female presents with abdominal pain. Patient has a soft abdomen but is tender in the mid abdomen. A CT is ordered and pending and care will be signed over to Dr. NEWTON to follow-up on the CT and a CBC and have the disposition. (CHUN KELLY MD) Course & Med Decision Making 60-year-old female past medical history significant for COPD and dementia, pres ents to the ED with cousin with c/o 1 or 2 episodes of nausea nonbloody nonbilious vomiting in the past week with concerns for nodules on her buttocks. Cousin called her Sister Charlotte who is normally with patient (charlotte is her caregiver) had these concerns. Charlotte reported that pt had nodules in her buttocks that have resolved. CT concerning for granulomas and possible sebaceous cyst, no sebaceous cyst or nodules palpated on physical exam no rash or infection. In ED patient complains of left lower quadrant abdominal pain but Charlotte reported patient has not been complaining of this at home. History is difficult due to patient's dementia. No history of melena or hematochezia, hematemesis or hemoptysis. No white count or anemia (labs within normal limits). Sterile pyuria on UA with no bacteria. Patient with no active nausea or vomiting. Patient and his cousin were given strict ED return precautions were given for abdominal pain, intractable nausea or vomiting or dehydration. Encouraged urgent outpatient follow-up with PMD. Life-threatening processes were considered but are low suspicion at this time, given history and physical exam. Pt was educated on all prescription medications and adverse effects. All patient's questions were answered and pt was stable at time of discharge. Life/limb-threatening differential includes but is not limited to, aortic dissection, aortic aneurysm, acute coronary syndrome, surgical abdomen (appendicitis, cholecystitis, ischemic bowel, strangulated hernia, etc), bowel obstruction or volvulus, bladder outlet obstruction, gastrointestinal bleeding, inflammatory bowel disease, peptic ulcer disease, sepsis, diverticular disease, ureterolithiasis, nephrolithiasis, ovarian or testicular torsion, ectopic , vaginal hemorrhage, or genitourinary infection. I spoken with the patient and her caregivers. I explained the patient's condition, diagnoses and treatment plan based on the information available to me at this time. I have answered the patient and her caregiver's questions and addressed any concerns. The patient and her caregivers have a good understanding of patient's diagnosis, condition and treatment plan as can be expected at this point. Vital signs have been stable. Patient's condition is stable and appropriate for discharge from the emergency department. Patient will pursue further outpatient evaluation with primary care physician or other designated or consulting physician as outlined in the discharge instructions. The patient and/or caregivers are agreeable to this plan of care and follow-up instructions have been explained in detail. The patient and/or caregivers have received these instructions in written form and have expressed an understanding of the discharge instructions. The patient and/or caregivers are aware that any significant change of condition or worsening of symptoms should prompt immediate return to this or the closest emergency department or call to 4. (AUBREY NEWTON DO) [place] Disclaimer: Dragon Disclaimer: This electronic medical record was generated, in whole or in part, using a voice recognition dictation system. (CHUN KELLY MD) Departure Departure Impression: Primary Impression: Acute abdominal pain Disposition: 01 DC HOME SELF CARE/HOMELESS Condition: STABLE Referrals: UNKNOWN PCP NAME (PCP) FOLLOW UP WITH FAMILY MEDICINE: Family Medicine Address: [address] [place] [id number] Patient Instructions: Abdominal Pain, Nausea and Vomiting Additional Instructions: EMERGENCY DEPARTMENT GENERAL DISCHARGE INSTRUCTIONS Thank you for coming to [facility] Emergency Department (ED) today and trusting us with you care. We trust that you had a positive experience in our Emergency Department. If you wish to speak to the department management, you may call the Director at [phone]. YOUR FOLLOW UP INSTRUCTIONS ARE FOLLOWS: 1. Do you have a private Doctor? If you do not have a private doctor, please ask for a resource list of physicians or clinics that may be able to assist you with follow up care. 2. The Emergency Physicain has interpreted your x-rays. The X-Ray specialist will also review them. If there is a change in the findings, you will be notified in 48 hours when at all possible. 3. A lab test or culture has been done, your results will be reviewed and you will be notified if you need a change in treatment. ADDITIONAL INSTRUCTIONS AND INFORMATION: 1. Your care today has been supervised by a physician who is specially trained in emergency care. Many problems require more than one evaluation for a complete diagnosis and treatment. We recommend that you schedule your follow up appointment as recomm ended to ensure complete treatment of you illness or injury. If you are unable to obtain follow up care and continue to have a problem, or if your condition worsens, we recommend that you return to the ED. 2. We are not able to safely determine your condition over the phone nor are we able to give sound medical advice over the phone. For these safety reasons, if you call for medical advice we will ask you to come to the ED for further evaluation. 3. If you have any questions regarding these discharge instructions please call the ED at [phone]. SAFETY INFORMATION: In the interest of safety, wellness, and injury prevention; we encourage you to wear your sealbelt, if you smoke; quite smoking, and we encourage family to use a protective helmet for bicycling and other sporting events that present an increased risk for head injury. IF YOUR SYMPTOMS WORSEN OR NEW SYMPTOMS DEVELOP, OR YOU HAVE CONCERNS ABOUT YOUR CONDITION; OR IF YOUR CONDITION WORSENS WHILE YOU ARE WAITING FOR YOUR FOLLOW UP APPOINTMENT; EITHER CONTACT YOUR PRIMARY CARE DOCTOR, THE PHYSICIAN WHOSE NAME AND NUMBER YOU WERE GIVEN, OR RETURN TO THE ED IMMEDIATELY. CHUN KELLY MD Sep 29, 2020 16:28 AUBREY NEWTON DO Sep 29, 2020 19:08
--- NOTE | 2020-09-29 17:02 | RAD ---
Exam: Chest one view INDICATION: Cough TECHNIQUE: Frontal view of the chest Comparisons: 06/08/2019 FINDINGS: The cardiomediastinal silhouette and pulmonary vessels are within normal limits. The lung and pleural spaces are clear. IMPRESSION: No acute cardiopulmonary process. Electronically signed by: Nohemy Madrid MD (09/29/2020 4:59 PM) [facility]
[2020-09-29 17:19] LABS: CALCIUM 9.1 mg/dL (8.5-10.1); CREATININE 0.8 mg/dL (0.6-1.0); GFR 87.9; POTASSIUM 3.8 mmol/L (3.5-5.1)
[2020-09-29 17:25] LABS: ALBUMIN 3.4 g/dL (3.4-5.0); ALBUMIN/GLOBULIN RATIO 0.9 (1.0-1.7); TOTAL BILIRUBIN 0.3 mg/dL (0.2-1.0); TOTAL PROTEIN 7.1 g/dL (6.4-8.2)
[2020-09-29] MEDS ORDERED: IOHEXOL 300 MG/ML 100ML VIAL. IV ONE (17:30)
[2020-09-29] MEDS ORDERED: CONTRAST GIVEN. MC PRN (17:30)
--- NOTE | 2020-09-29 18:37 | RAD ---
CT scan abdomen and pelvis with contrast 09/19/2020 CLINICAL HISTORY: Abdominal pain. TECHNIQUE: After the intravenous administration of 75 cc of Omnipaque 300 only, contiguous, 5 mm axial sections were obtained through the abdomen and pelvis. One or more of the following individualized dose reduction techniques were utilized for this study: 1. Automated exposure control. 2. Adjustment of the mA and/or kV according to patient size. 3. Use of iterative reconstruction technique. FINDINGS: Comparison study is dated 05/08/2010. Images through the lung bases demonstrate minimal dependent subsegmental atelectasis bilaterally. The liver parenchyma has a decreased attenuation consistent with fatty infiltration. The spleen, pancreas, adrenal glands and kidneys are within normal limits. The abdominal aorta tapers normally. The gallbladder is well-distended. No free fluid or free air is seen within the abdomen. Air and stool are seen throughout the colon. There is no evidence of bowel obstruction. The patient appears to be post appendectomy. Multiple small rounded areas of attenuation are seen within the subcutaneous fat of the gluteal regions bilaterally which likely reflect injection granulomas. A 4.3 cm rounded low-attenuation lesion is seen within the subcutaneous fat of the right gluteal region beneath the skin surface which may represent a sebaceous cyst. Images through the pelvis demonstrate the urinary bladder distended with urine. Calcifications are seen within the pelvis consistent with phleboliths. No free fluid is noted. Minimal S-shaped curvature of the thoracolumbar spine is seen. Degenerative changes are seen involving the lower thoracic and throughout the lumbar spine along with both hips. IMPRESSION: No acute abnormality is seen. Electronically signed by: John Ambriz MD (09/29/2020 6:34 PM) [id number]
[2020-09-29 19:16] LABS: BILIRUBIN,URINE NEGATIVE (NEG); CLARITY,URINE CLEAR; COLOR,URINE YELLOW; NITRITE,URINE NEGATIVE (NEG); PH,URINE 6.5 (<5.0-8.0); PROTEIN,URINE NEGATIVE (NEG-TRACE); UROBILINOGEN,URINE 0.2 mg/dL (0.2 mg/dL)
[2020-09-29 19:24] LABS: BASO # 0.1 x10^3/uL (0.0-0.2); BASO % 1 % (0-3); EOS # 0.2 x10^3/uL (0.0-0.7); EOS % 2 % (0-3); HEMATOCRIT 37.6 % (36.0-47.0); HEMOGLOBIN 12.3 g/dL (12.0-15.5); LYMPH # 4.5 x10^3/uL (1.0-4.8); LYMPH % 41 % (24-48); MEAN CORPUSCULAR HEMOGLOBIN 30 pg (25-35); MEAN CORPUSCULAR HGB CONC 33 g/dL (31-37); MEAN CORPUSCULAR VOLUME 93 fL (79-100); MONO # 0.6 x10^3/uL (0.0-1.1); MONO % 6 % (0-9); NEUT # 5.6 x10^3/uL (1.8-7.7); NEUT % 51 % (31-73); PLATELET COUNT 262 x10^3/uL (140-400); RED BLOOD COUNT 4.05 x10^6/uL (3.50-5.40); RED CELL DISTRIBUTION WIDTH 16.2 % (11.5-14.5)
[2020-09-29 19:24] LABS: BACTERIA,URINE 0 /HPF (0-FEW); RBC,URINE 0 /HPF (0-2)
[2020-09-29 20:00] VITALS: BP 161/85
== END 2020-09-29 20:30 | disposition home or self-care (01) ==
LOC: ER 14:47
DX: R10.30 Lower abdominal pain, unspecified (principal); R11.2 Nausea with vomiting, unspecified; R50.9 Fever, unspecified; F41.9 Anxiety disorder, unspecified; J45.909 Unspecified asthma, uncomplicated; E78.00 Pure hypercholesterolemia, unspecified; I10 Essential (primary) hypertension; F20.9 Schizophrenia, unspecified; F12.90 Cannabis use, unspecified, uncomplicated; Z90.710 Acquired absence of both cervix and uterus; Z98.890 Other specified postprocedural states; Z90.89 Acquired absence of other organs; Z88.0 Allergy status to penicillin; Z88.8 Allergy status to other drugs, medicaments and biological substances
CPT/HCPCS: 36415; 71045; 74177; 80053; 81001; 83605; 83690; 85025; 87040; 87086; 96361; 96374; 99285; J2405; J7030; Q9967

== ENCOUNTER 2020-10-06 08:46 | Emergency (ER) | payer MEDICARE, MEDICAID ==
[~2020-10-06] VITALS: Ht 149.9 cm; Wt 64.0 kg
--- NOTE | 2020-10-06 09:57 | ED.ADGEN ---
Past Medical History Past Medical History: Anxiety, Asthma, High Cholesterol, Hypertension, Schizophrenia, Other Additional Past Medical Histor: "heart blockages" Past Surgical History: Hysterectomy, Tonsillectomy, Other Additional Past Surgical Histo: "needs stents" Smoking Status: Never Smoker Alcohol Use: None Drug Use: Marijuana General Adult EDM: Chief Complaint: MULTIPLE COMPLAINTS HPI: HPI: Patient is a 60 year old female coming in for multiple complaints. Patient states that she has had nausea and vomiting over the past 5 days, last episode of diarrhea was yesterday. Emesis is nonbloody nonbilious. Patient is also noted darker spots in her urine which thinks might be blood. Has a history of kidney stones but is not having any flank pain. Patient states that she has had body aches and loss of smell. Is also having productive cough of yellow to green phlegm. Review of Systems: Review of Systems: Constitutional: Denies fever or chills. [] Eyes: Denies change in visual acuity. [] HENT: Denies nasal congestion or sore throat. [] Loss of smell Respiratory: Cough Cardiovascular: Denies chest pain or edema. [] GI: Epigastric and suprapubic abdominal pain, nausea, vomiting, diarrhea. : Denies dysuria. [] Darker urine with possible blood Musculoskeletal: Denies back pain or joint pain. [] Integument: Denies rash. [] Neurologic: Denies headache, focal weakness or sensory changes. [] Endocrine: Denies polyuria or polydipsia. [] Lymphatic: Denies swollen glands. [] Psychiatric: Denies depression or anxiety. [] Current Medications: Current Medications Medications (Trade) Dose Ordered Sig/Neeta Start Time Stop Time Status Last Admin Dose Admin Calcium Gluconate (Calcium Gluconate) 1,000 mg 1X ONCE 10/06/20 15:00 10/06/20 15:01 DC Dextrose (Dextrose 50%-Water Syringe) 25 gm 1X ONCE 10/06/20 15:00 10/06/20 15:01 DC Fentanyl Citrate (Fentanyl 2ml Vial) 50 mcg PRN Q1HR PRN 10/06/20 15:15 10/07/20 15:14 Insulin Human Regular (HumuLIN R VIAL) 10 unit 1X ONCE 10/06/20 15:00 10/06/20 15:01 DC Ondansetron HCl (Zofran) 4 mg PRN Q8HRS PRN 10/06/20 15:15 10/07/20 15:14 Sodium Polystyrene Sulfonate (Kayexalate) 30 gm 1X ONCE 10/06/20 15:00 10/06/20 15:01 DC Sodium Bicarbonate (Sodium Bicarb Adult 8.4% Syr) 50 meq 1X ONCE 10/06/20 15:00 10/06/20 15:01 DC Sodium Chloride 1,000 ml @ 1,000 mls/hr 1X ONCE 10/06/20 12:45 10/06/20 13:44 DC 10/06/20 12:55 1,000 MLS/HR Allergies: Allergies: Allergies Coded Allergies Type Severity Reaction Last Updated Verified Penicillins Allergy Intermediate 07/23/14 Yes aspirin Allergy Intermediate HIVES 07/23/14 Yes Tetracyclines Allergy Unknown 09/29/20 Yes acetaminophen Allergy Unknown 09/29/20 Yes propoxyphene Allergy Unknown 09/29/20 Yes Physical Exam: PE: Constitutional: Well developed, well nourished, no acute distress, non-toxic appearance. [] HENT: Normocephalic, atraumatic, bilateral external ears normal, oropharynx moist, no oral exudates, nose normal. [] Eyes: PERRLA, EOMI, conjunctiva normal, no discharge. [] Neck: Normal range of motion, no tenderness, supple, no stridor. [] Cardiovascular:Heart rate regular rhythm, no murmur [] Lungs & Thorax: Bilateral breath sounds clear to auscultation [] Abdomen lower abdominal tenderness with guarding, nondistended and no rebound. Skin: Warm, dry, no erythema, no rash. [] Back: No tenderness, no CVA tenderness. [] Extremities: No tenderness, no cyanosis, no clubbing, ROM intact, no edema. [] Neurologic: Alert and oriented X 3, normal motor function, normal sensory function, no focal deficits noted. [] Psychologic: Affect normal, judgement normal, mood normal. [] Current Patient Data: Labs: Laboratory Tests Test 10/06/20 10:05 10/06/20 13:50 10/06/20 15:10 Urine Collection Type Void Urine Color Yellow Urine Clarity Clear Urine pH 5.5 (<5.0-8.0) Urine Specific [place] 1.015 (1.000-1.030) Urine Protein Negative mg/dL (NEG-TRACE) Urine Glucose (UA) Negative mg/dL (NEG) Urine Ketones (Stick) 15 mg/dL (NEG) Urine Blood Negative (NEG) Urine Nitrite Negative (NEG) Urine Bilirubin Negative (NEG) Urine Urobilinogen Dipstick 0.2 mg/dL (0.2 mg/dL) Urine Leukocyte Esterase Small (NEG) Urine RBC Occ /HPF (0-2) Urine WBC 5-10 /HPF (0-4) Urine Squamous Epithelial Cells Mod /LPF Urine Bacteria Few /HPF (0-FEW) Sodium Level 146 mmol/L (136-145) H Potassium Level 7.6 mmol/L (3.5-5.1) *H 3.7 mmol/L (3.5-5.1) # Chloride Level 112 mmol/L (98-107) H Carbon Dioxide Level 23 mmol/L (21-32) Anion Gap 11 (6-14) Blood Urea Nitrogen 10 mg/dL (7-20) Creatinine 0.8 mg/dL (0.6-1.0) Estimated GFR (Cockcroft-Gault) 87.9 BUN/Creatinine Ratio 13 (6-20) Glucose Level 82 mg/dL (70-99) Calcium Level 6.1 mg/dL (8.5-10.1) L Magnesium Level 2.1 mg/dL (1.8-2.4) Total Bilirubin 0.5 mg/dL (0.2-1.0) Aspartate Amino Transferase (AST) 14 U/L (15-37) L Alanine Aminotransferase (ALT) 19 U/L (14-59) Alkaline Phosphatase 64 U/L (46-116) Troponin I Quantitative < 0.017 ng/mL (0.000-0.055) Total Protein 6.1 g/dL (6.4-8.2) L Albumin 3.3 g/dL (3.4-5.0) L Albumin/Globulin Ratio 1.2 (1.0-1.7) Lipase 68 U/L (73-393) L White Blood Count 9.2 x10^3/uL (4.0-11.0) Red Blood Count 3.85 x10^6/uL (3.50-5.40) Hemoglobin 11.9 g/dL (12.0-15.5) L Hematocrit 35.9 % (36.0-47.0) L Mean Corpuscular Volume 93 fL (79-100) Mean Corpuscular Hemoglobin 31 pg (25-35) Mean Corpuscular Hemoglobin Concent 33 g/dL (31-37) Red Cell Distribution Width 15.9 % (11.5-14.5) H Platelet Count 306 x10^3/uL (140-400) Neutrophils (%) (Auto) 52 % (31-73) Lymphocytes (%) (Auto) 40 % (24-48) Monocytes (%) (Auto) 6 % (0-9) Eosinophils (%) (Auto) 2 % (0-3) Basophils (%) (Auto) 1 % (0-3) Neutrophils # (Auto) 4.8 x10^3/uL (1.8-7.7) Lymphocytes # (Auto) 3.7 x10^3/uL (1.0-4.8) Monocytes # (Auto) 0.6 x10^3/uL (0.0-1.1) Eosinophils # (Auto) 0.1 x10^3/uL (0.0-0.7) Basophils # (Auto) 0.1 x10^3/uL (0.0-0.2) Laboratory Tests 10/06/20 15:10 Laboratory Tests 10/06/20 13:50 10/06/20 15:10 Vital Signs: Vital Signs Date Time Temp Pulse Resp B/P (MAP) Pulse Ox O2 Delivery O2 Flow Rate FiO2 10/06/20 09:01 98.2 66 16 156/76 (102) 100 Room Air 98.2 EKG: EKG: Normal sinus rhythm, heart rate 64, no ST elevation or depression, normal intervals. No signs of QRS widening or elevation of T waves. [] Heart Score: Risk Factors: Risk Factors: DM, Current or recent (<one month) smoker, HTN, HLP, family history of CAD, obesity. Risk Scores: Score 0 - 3: 2.5% MACE over next 6 weeks - Discharge Home Score 4 - 6: 20.3% MACE over next 6 weeks - Admit for Clinical Observation Score 7 - 10: 72.7% MACE over next 6 weeks - Early Invasive Strategies Radiology/Procedures: Radiology/Procedures: PROCEDURE: CHEST AP ONLY AP chest. HISTORY: Cough AP view was taken of the chest. Lungs are free of infiltrates. Heart is normal in size. There is no pleural effusion. There is an old healed left humerus fracture. There is scarring along the left heart border without change. IMPRESSION: 1. No acute infiltrates. [] Course & Med Decision Making: Course & Med Decision Making Pertinent Labs and Imaging studies reviewed. (See chart for details) Patient feeling better, discussed hyperkalemia discussed with hospitalist and nephrology. Repeat potassium came back at 3.7. Discussed with patient will discharge with follow-up with her primary care. [] Dragon Disclaimer: Dragon Disclaimer: This electronic medical record was generated, in whole or in part, using a voice recognition dictation system. Departure Departure Impression: Primary Impression: Nausea vomiting and diarrhea Disposition: 01 DC HOME SELF CARE/HOMELESS Condition: STABLE Referrals: AMARJIT EAGLE (PCP) Patient Instructions: Diet for Diarrhea, Adult Scripts Ondansetron (ONDANSETRON ODT) 4 Mg Tab.rapdis 1 TAB PO PRN Q6-8HRS for nausea for 3 Days, #16 TAB Prov: FRANNIE VAUGHN MD 10/06/20 FRANNIE VAUGHN MD Oct 06, 2020 09:57
[2020-10-06] MEDS ORDERED: fentaNYL PF VIAL 100 MCG/2 ML VIAL IVP ONE ×2 (10:00→12:45)
[2020-10-06] MEDS ORDERED: IV NORMAL SALINE 1000ML BAG 1,000 ML IV ONE ×2 (10:00→12:45)
[2020-10-06] MEDS ORDERED: ONDANSETRON PF 4 MG/2 ML VIAL. IVP ONE (10:00)
[2020-10-06 10:21] LABS: BILIRUBIN,URINE NEGATIVE (NEG); CLARITY,URINE CLEAR; COLOR,URINE YELLOW; NITRITE,URINE NEGATIVE (NEG); PH,URINE 5.5 (<5.0-8.0); PROTEIN,URINE NEGATIVE (NEG-TRACE); UROBILINOGEN,URINE 0.2 mg/dL (0.2 mg/dL)
[2020-10-06 10:25] LABS: BACTERIA,URINE FEW /HPF (0-FEW); RBC,URINE OCC /HPF (0-2)
--- NOTE | 2020-10-06 10:48 | RAD ---
AP chest. HISTORY: Cough AP view was taken of the chest. Lungs are free of infiltrates. Heart is normal in size. There is no pleural effusion. There is an old healed left humerus fracture. There is scarring along the left heart border without change. IMPRESSION: 1. No acute infiltrates. Electronically signed by: Asher Baer MD (10/06/2020 10:45 AM) [id number]
[2020-10-06 14:38] LABS: ALBUMIN 3.3 g/dL (3.4-5.0); ALBUMIN/GLOBULIN RATIO 1.2 (1.0-1.7); CALCIUM 6.1 mg/dL (8.5-10.1); CREATININE 0.8 mg/dL (0.6-1.0); GFR 87.9; TOTAL BILIRUBIN 0.5 mg/dL (0.2-1.0); TOTAL PROTEIN 6.1 g/dL (6.4-8.2)
[2020-10-06 14:48] LABS: POTASSIUM 7.6 mmol/L (3.5-5.1)
[2020-10-06] MEDS ORDERED: DEXTROSE 50% 25 GM / 50ML DISP.SYRIN. IV ONE (15:00)
[2020-10-06] MEDS ORDERED: SODIUM POLYSTYRENE SULFON/SORB 15 GM/60 ML ORAL.SUSP. PO ONE (15:00)
[2020-10-06] MEDS ORDERED: INSULIN REGULAR 100 UNIT/ML 3ML VIAL. IV ONE (15:00)
[2020-10-06] MEDS ORDERED: CALCIUM GLUCONATE 1,000 MG/10 ML VIAL. IVP ONE (15:00)
[2020-10-06] MEDS ORDERED: SODIUM BICARB ADULT 8.4% 50 MEQ/50 ML DISP.SYRIN. IV ONE (15:00)
[2020-10-06] MEDS ORDERED: ONDANSETRON PF 4 MG/2 ML VIAL. IV PRN (15:15)
[2020-10-06] MEDS ORDERED: fentaNYL PF VIAL 100 MCG/2 ML VIAL IV PRN (15:15)
[2020-10-06 15:25] LABS: BASO # 0.1 x10^3/uL (0.0-0.2); BASO % 1 % (0-3); EOS # 0.1 x10^3/uL (0.0-0.7); EOS % 2 % (0-3); HEMATOCRIT 35.9 % (36.0-47.0); HEMOGLOBIN 11.9 g/dL (12.0-15.5); LYMPH # 3.7 x10^3/uL (1.0-4.8); LYMPH % 40 % (24-48); MEAN CORPUSCULAR HEMOGLOBIN 31 pg (25-35); MEAN CORPUSCULAR HGB CONC 33 g/dL (31-37); MEAN CORPUSCULAR VOLUME 93 fL (79-100); MONO # 0.6 x10^3/uL (0.0-1.1); MONO % 6 % (0-9); NEUT # 4.8 x10^3/uL (1.8-7.7); NEUT % 52 % (31-73); PLATELET COUNT 306 x10^3/uL (140-400); RED BLOOD COUNT 3.85 x10^6/uL (3.50-5.40); RED CELL DISTRIBUTION WIDTH 15.9 % (11.5-14.5); WHITE BLOOD COUNT 9.2 x10^3/uL (4.0-11.0)
[2020-10-06 16:00] VITALS: BP 161/60
[2020-10-06] MEDS ORDERED: ONDA4TAB12 PO ×2 (16:06→16:09)
--- NOTE | 2020-10-06 16:12 | EKG ---
[facility] [address] [place] [address] Test Date: 2020-10-06 Test Time: 15:39:58 Pat Name: JOE YOST Department: Room: Gender: F Vending Machine Mechanic: : 1960 Requested By: FRANNIE VAUGHN Order Number: [id number] Reading MD: Measurements Intervals [place] Rate: 64 P: 45 [place]: 252 QRS: -39 QRSD: 62 T: -19 QT: 434 QTc: 452 Interpretive Statements SINUS RHYTHM PROLONGED [place] INTERVAL ABNORMAL LEFT AXIS DEVIATION R-S TRANSITION ZONE IN V LEADS DISPLACED TO THE RIGHT LOW LIMB LEAD VOLTAGE LEFT ANTERIOR FASCICULAR BLOCK QRS(T) CONTOUR ABNORMALITY CONSIDER ANTEROSEPTAL MYOCARDIAL DAMAGE ABNORMAL ECG RI6.01 Compared to ECG 10/06/2020 09:11:37 T-wave abnormality no longer present
--- NOTE | 2020-10-08 12:11 | NUR ---
IP: Attempted to call COVID results. No answer. Left a voicemail to return the call.
== END 2020-10-06 18:05 | disposition home or self-care (01) ==
LOC: ER 08:46
DX: R11.2 Nausea with vomiting, unspecified (principal); Z20.828 Contact with and (suspected) exposure to other viral communicable diseases; R19.7 Diarrhea, unspecified; R05 Cough; R10.30 Lower abdominal pain, unspecified; F41.9 Anxiety disorder, unspecified; J45.909 Unspecified asthma, uncomplicated; E78.00 Pure hypercholesterolemia, unspecified; I10 Essential (primary) hypertension; F20.9 Schizophrenia, unspecified; F12.90 Cannabis use, unspecified, uncomplicated; Z90.710 Acquired absence of both cervix and uterus; Z98.890 Other specified postprocedural states; Z88.0 Allergy status to penicillin; Z88.6 Allergy status to analgesic agent; Z88.8 Allergy status to other drugs, medicaments and biological substances
CPT/HCPCS: 36415; 71045; 80053; 81001; 83690; 83735; 84132; 84484; 85025; 87086; 93005; 96361; 96374; 96375; 96376; 99285; C9803; J2405; J3010; J7030; U0003

== ENCOUNTER 2021-11-09 11:50 | Day surgery (SDC) | payer OTHER, MEDICAID ==
[~2021-11-09] VITALS: Ht 152.4 cm; Wt 63.0 kg
[~2021-11-09 11:50] MED LIST changes: +ALBU2.5V8 INH; +CHOL10004 PO; +CLINDAMYCIN 900MG PREMIX 50 ML IV PRN; +CLONAZEPAM1 MG PO; +CYCL10TA19 PO; -CYCL10TA2 PO; +DIVA-53 PO; +FAMO20TA5 PO; +HALO5TAB PO; +HYDROmorphone 2 MG/ML VIAL IVP PRN; +IV RINGERS,LACTATED 1000ML 1,000 ML IV SCH; +METF10007 PO; +MORPHINE SULFATE 2 MG/ML INJ. IVP PRN; +ONDA4TAB12 PO; +PARO20TA3 PO; +PROCHLORPERAZINE 10 MG/2 ML VIAL. IVP PRN; +SIMV10TA15 PO; +fentaNYL PF VIAL 100 MCG/2 ML VIAL IVP PRN
[2021-11-09] MEDS ORDERED: LIDOCAINE 2% PF 5 ML VIAL. ONE (11:51)
[2021-11-09] MEDS ORDERED: fentaNYL PF VIAL 100 MCG/2 ML VIAL ONE ×3 (11:51→16:56)
[2021-11-09] MEDS ORDERED: PROPOFOL 10 MG/ML (20ML) VIAL. IV ONE (11:51)
[2021-11-09 12:21] VITALS: BP 141/79
[2021-11-09] MEDS ORDERED: INSULIN LISPRO 100 UNIT/ML 3ML VIAL for OP,RR ONLY. SQ PRN (12:30)
[2021-11-09] MEDS ORDERED: ROPIVacaine 0.5% PF 20 ML VIAL. ONE (12:45)
[2021-11-09] MEDS ORDERED: MIDAZOLAM HCL/PF 2 MG/2 ML VIAL. ONE (12:45)
[2021-11-09] MEDS ORDERED: VANCOMYCIN 1 GM VIAL. ONE (13:48)
[2021-11-09] MEDS ORDERED: BUPIVACAINE MPF 0.25% 30 ML VIAL. ONE (13:48)
--- NOTE | 2021-11-09 13:48 | PDOC1 ---
History and Physical Date of Service: DOS: DATE: 11/09/21 TIME: 13:33 Chief Complaint: Chief Complain: Right ankle pain History of Present Illness: HPI: Patient is a 61-year-old female with past medical history of diabetes mellitus type 2 on Metformin who comes in to outpatient surgery for a right trimalleolar fracture that was sustained on October 29. Patient has been immobilized in a splint since that time. Patient does not have any other complaints today. She denies any fevers, chest pain, abdominal pain, dysuria or hematuria or bleeding. She has been taking [place] from the ED for her pain management. Past Medical/Surgical History: PMH/PSH: Past medical history of diabetes mellitus type 2, hypertension, GERD Denies any past surgical history Allergies: Allergies: Coded Allergies: Penicillins (Verified Allergy, Intermediate, Hives, 11/09/21) aspirin (Verified Allergy, Intermediate, HIVES, 11/09/21) Family History: Family History: Reviewed with no relevant findings Social History: Social History: Denies any alcohol, tobacco or drug abuse. Current Medications: Current Medications Current Medications Fentanyl Citrate (Fentanyl 2ml Vial) 25 mcg PRN Q5MIN PRN IVP MILD PAIN 1-3; Start 11/09/21 at 06:00; Stop 11/10/21 at 05:59 Fentanyl Citrate (Fentanyl 2ml Vial) 50 mcg PRN Q5MIN PRN IVP MODERATE PAIN 4- 6; Start 11/09/21 at 06:00; Stop 11/10/21 at 05:59 Morphine Sulfate (Morphine Sulfate) 1 mg PRN Q10MIN PRN IVP SEVERE PAIN 7-10; Start 11/09/21 at 06:00; Stop 11/10/21 at 05:59 Ringer's Solution 1,000 ml @ 30 mls/hr Q24H IV ; Start 11/09/21 at 06:00; Stop 11/09/21 at 17:59 Hydromorphone HCl (Dilaudid) 0.5 mg PRN Q10MIN PRN IVP SEVERE PAIN 7-10, 2nd CHOICE; Start 11/09/21 at 06:00; Stop 11/10/21 at 05:59 Prochlorperazine Edisylate (Compazine) 5 mg PACU PRN PRN IVP NAUSEA, MRX1; Start 11/09/21 at 06:00; Stop 11/10/21 at 05:59 Clindamycin Phosphate 50 ml @ 100 mls/hr 1X PREOP PRN IV PRIOR TO PROCEDURE; Start 11/09/21 at 06:00; Stop 11/09/21 at 18:00 Propofol (Diprivan) 200 mg STK-MED ONCE IV ; Start 11/09/21 at 11:51; Stop 11/09/21 at 11:51; Status DC Lidocaine HCl (Lidocaine Pf 2% Vial) 5 ml STK-MED ONCE .ROUTE ; Start 11/09/21 at 11:51; Stop 11/09/21 at 11:51; Status DC Fentanyl Citrate (Fentanyl 2ml Vial) 100 mcg STK-MED ONCE .ROUTE ; Start 11/09/21 at 11:51; Stop 11/09/21 at 11:52; Status DC Insulin Human Lispro (HumaLOG VIAL for OP,RR ONLY) 0-10 units PRN Q1HR PRN SQ PER PROTOCOL; Start 11/09/21 at 12:30; Stop 11/10/21 at 12:29 Ropivacaine (Naropin 0.5%) 20 ml STK-MED ONCE .ROUTE ; Start 11/09/21 at 12:45; Stop 11/09/21 at 12:45; Status DC Midazolam HCl (Versed) 2 mg STK-MED ONCE .ROUTE ; Start 11/09/21 at 12:45; Stop 11/09/21 at 12:45; Status DC Active Scripts Active Reported Proair Hfa Inhaler (Albuterol Sulfate) 8.5 Gm Hfa.aer.ad 1 Puff INH PRN Q6HRS PRN Simvastatin 10 Mg Tablet 10 Mg PO HS Metformin Hcl 1,000 Mg Tablet 1,000 Mg PO BIDWMEALS Haloperidol 5 Mg Tablet 5 Mg PO HS Famotidine 20 Mg Tablet 10 Mg PO DAILY07 Divalproex Sodium 500 Mg Tablet.dr 250 Mg PO HS Clonazepam 1 Mg Tablet 0.5 Mg PO BID Vitamin D3 (Vitamin D) 25 Mcg Tablet 25 Mcg PO DAILY 1,000 UNITS = 25 MCG Paroxetine Hcl 20 Mg Tablet 20 Mg PO DAILY07 Clonidine Hcl 0.1 Mg Tablet 0.1 Mg PO BID Benztropine Mesylate 0.5 Mg Tablet 1 Tab PO BID ROS: Review of Systems Review of System REVIEW OF SYSTEMS: GENERAL: Denies weakness SKIN: No bruising, hair changes or rashes. EYES: No blurred, double or loss of vision. NOSE AND THROAT: No history of nosebleeds, hoarseness or sore throat. HEART: No history of palpitations, chest pain or shortness of breath on exertion. LUNGS: Denies cough, hemoptysis, wheezing or shortness of breath. GASTROINTESTINAL: Denies changes in appetite, nausea, vomiting, diarrhea or constipation. GENITOURINARY: No history of frequency, urgency, hesitancy or nocturia. NEUROLOGIC: Denies history of numbness, tingling, or tremor. PSYCHIATRIC: No history of panic, anxiety or depression. ENDOCRINE: No history of heat or cold intolerance, polyuria or polydipsia. EXTREMITIES: Denies joint pain, pain on walking or stiffness. Physical Exam: Vital Signs: Vital Signs Date Time Temp Pulse Resp B/P (MAP) Pulse Ox O2 Delivery O2 Flow Rate FiO2 11/09/21 12:30 97.9 62 14 141/79 99 Room Air 97.9 Physcial Exam: General: Well developed, well nourished, no acute distress, well appearing HEENT: Pupils equally round and reactive to light, EOMI, no discharge, normal conjunctiva Neck: Supple, no nuchal rigidity, no JVD, trachea midline, no tenderness Cardiac: RRR, no murmurs, no gallops, no rubs Chest/Lungs: CTAB, no wheeze, no rhonchi, no crackles Abdomen: soft, non-distended, no guarding, no peritoneal signs, non-tender Back: No tenderness Extremities: no edema, pulses intact, non-tender,capillary refill <3 sec bilateral upper and lower extremities, Neuro: Alert and oriented x 4, no focal deficits, normal speech Labs: Labs: Laboratory Tests Test 11/09/21 12:25 11/09/21 12:48 SARS-CoV-2 Antigen (Rapid) Negative (NEGATIVE) Glucose (Fingerstick) 63 mg/dL (70-99) Laboratory Tests Test 11/09/21 12:25 11/09/21 12:48 SARS-CoV-2 Antigen (Rapid) Negative (NEGATIVE) Glucose (Fingerstick) 63 mg/dL (70-99) Images: Images No recent images to review Assessment/Plan Assessment/Plan Right trimalleolar fracture Patient will be admitted to under the care of Dr. Elkins for a right ankle trimalleolar ORIF Plan for discharge from the PACU Ren score of 0.1% Would recommend keeping patient on the sliding scale and Accu-Cheks every 4 Pain management per anesthesia Please call hospitalist service for any questions Justifications for Admission Other Justification NASH BERRY MD Nov 09, 2021 13:48
[2021-11-09] MEDS ORDERED: ONDANSETRON PF 4 MG/2 ML VIAL. ONE (14:39)
[2021-11-09] MEDS ORDERED: SEVOFLURANE > 120 MINUTES. IH ONE (15:18)
[2021-11-09] MEDS ORDERED: oxyCODONE/APAP 5/325 1 TAB TABLET PO ONE (16:45)
[2021-11-09] MEDS ORDERED: GABAPENTIN 100 MG CAPSULE. PO ONE (16:45)
[2021-11-09] MEDS ORDERED: ACETAMINOPHEN 325 MG TABLET. PO ONE (16:45)
--- NOTE | 2021-11-09 16:45 | PDOC4 ---
OPERATIVE NOTE Date: Date: Nov 09, 2021 Pre-Op Diagnosis: Right displaced trimalleolar fracture Post-Op Diagnosis: Same as above Procedure Performed: Right fibular and medial malleolar fracture open reduction internal fixation, syndesmotic joint stabilization Surgeon: Cristofer Richards DPM Anesthesia Type: General Blood Loss: 5 cc Specimans Obtained: None Findings: Long spiral fibula fracture, oblique distal medial malleolus fracture, less than 25% posterior tibial fracture with mild proximal displacement Complications: None Operative Note: Under mild sedation and a Right popliteal block, patient was brought to the operating room and placed on the operating table in a supine position. A time out was performed, to confirm patient's identity, location of surgery, and procedure. After induction of general anesthesia and intravenous antibiotics, a well-padded pneumatic thigh tourniquet was placed onto right lower extremity. The right lower extremity was scrubbed, prepped and draped in the usual sterile manner. Under intraoperative x-ray guidance, the distal medial and lateral malleolar fracture apices, center axial fibula were identified and marked for preoperative incision and surgical planning. An Esmarch bandage was utilized to exsanguinate the lower leg, and the tourniquet was inflated to 250 mmHg. Attention was directed to the lateral fibular shaft at the syndesmotic joint, approximal 3cm proximal to the ankle joint. A 2-3cm linear full thickness skin incision was made over the lateral fibula. The incision was carried deep with a combination of sharp and blunt dissection with care to protect and retract all n eurovascular bundles. At this time, a spiral fibula fracture was visualized near the ankle joint. The fracture site was irrigated with copious saline solution. The hematoma was evacuated with a rongeur. The proximal posterior spike was carefully released from the soft tissue with a periosteal elevator from the lateral distal skin incision. The fracture was reduced with 2 lobster clamps. Intraoperative x-ray remarked adequate fibular length evangelical and posterior spike reduction. Then a 1 cm linear incision was made to the distal tip of the fibula. Using a combination of sharp and blunt dissection, the incision was carried deep to the periosteal layer to the distal fibular fossa. Under intraoperative x-ray guidance, a 1.6 mm guidewire was introduced proximally within the intramedullary canal of the fibula passing the fracture site. The position of the guidewire was confirmed both on lateral and AP of the ankle x-ray. A 6.2 mm tapered reamer over the guidewire was used through the tissue protector for the distal reaming. The flutes were buried at least 3 mm within the distal fibula. Fracture site remained stable and well reduced. Then a 3.2 mm reamer was isolated proximally over the guidewire through the tissue protector until the depth indicator collar was well within the distal fibula. Adequate chatter was noted proximally. And fracture reduction was maintained confirmed on x-ray. The guidewire was removed and fibula lock and outer jig were introduced proximally to the satisfactory depth where a 1.6 mm K wire was introduced from lateral to medial through the outer jig "end hole" and confirmed the distal portion of the nail was flush and well countersunk in the fibula. The 1.6 mm K wire was advanced into the distal tibia as one point of fixation. The syndesmotic screw holes were also noted within satisfactory position. Then, a 1.6 mm K wire was advanced through the provisional syndesmotic screw hole towards the medial cortex of the tibia which noted adequate and satisfactory syndesmotic hardware trajectory. Then, the talons were activated proximally to purchase the inner fibular cortex. At the "static position", two 4.0 millimeter screws was placed, via standard AO technique, to the distal fibula lock to secure the distal portion of the fracture. Adequate and satisfactory screw position and length were noted on the intraoperative x-ray. Attention was directed to the medial right ankle where a standard linear approach was performed. The incision was deepened using sharp and blunt dissection down to the level of the periosteum, which was incised. Care was taken to retract all vital neurovascular structures and all bleeders were cauterized as needed. The fracture was identified and all interposed periosteum was resected away from the fracture site. The posterior tibial tendon was protected throughout the procedure. The wound was copiously irrigated with normal saline. Further lateral talar dome inspection was negative for any OCD lesions. The fracture site was reduced with a bone clamp. Next, two guide pins were placed across the fracture site in a parallel fashion. C-arm was utilized to confirm the placement and length. Next, two 4.0 partially treaded cancellous screws, were placed sequentially in an AO fashion. The imaging intensifier was then utilized to confirm the positioning, length and to ensure no violation of the articular surface had occurred. The fracture appeared to be anatomically reduced, and the mortise was anatomic. At this time, Syndesmotic joint stress test was equivocal. Given the posterior malleolus fracture would be left unfixed given the <25% intra-articular involvement, the decision was made to stabilize the syndesmotic joint with 2 traversing screws. then two 4.0 mm fully threaded screws were placed through the syndesmotic holes in the fibulock traversing quadracortices to the medial malleolus with ankle dorsiflexed to neural. then mortise was noted restored with a normal dime sign laterally. dynamic stress test was stable for syndesmotic joint. There was a small Volkman fx, extra-articular< 25% was stable and self reduced after fibular ORIF. Final surveillance x-ray remarked adequate hardware position, alignment. Restored ankle mortise alignment. The surgical sites were irrigated with copious saline solution. The sites were closed in layers with 4 Monocryl and 4-0 nylon. The right lower extremity was dressed with Arthrex Jumpstart dressing, 4x4 gauze, ABD, soft rolls. Right lower extremity was immobilized in a well-padded modified Smalls compression dressing with ankle held in near 90 degrees. Tourniquet was deflated and adequate digital perfusion was noted. Patient tolerated the procedure and anesthesia well. Patient was transferred to PACU for continuous recovery with vital signs stable and neurovascular status intact. Pending 3 view of the right ankle x-ray in PACU. CRISTOFER RICHARDS DPM Nov 09, 2021 16:45
[2021-11-09] MEDS ORDERED: MORPHINE SULFATE 2 MG/ML INJ. ONE (16:56)
[2021-11-09] MEDS: fentaNYL PF VIAL 100 MCG/2 ML VIAL IVP PRN ×2 (17:00→17:20)
--- NOTE | 2021-11-09 17:29 | RAD ---
EXAM: Right ankle, 3 views. HISTORY: Postoperative evaluation. COMPARISON: 10/29/2021 FINDINGS: 3 views of the right ankle are obtained. There is internal fixation of a distal fibular met adiaphyseal fracture and medial malleolar fracture. There is an unchanged posterior malleolar fractur e. The ankle mortise is intact. There is no ossicular lesion. There is diffuse ankle soft tissue swel ling. There is external casting material which limits avulsion of bony detail. IMPRESSION: 1. Internal fixation of the a distal fibular fracture and medial malleolar fracture. 2. Unchanged posterior malleolar fracture. 3. Soft tissue swelling. Electronically signed by: Sharmaine Montoya MD (11/09/2021 5:26 PM) [id number]
[2021-11-09 17:38] VITALS: BP 102/86
== END 2021-11-09 18:06 | disposition home or self-care (01) ==
LOC: SURG 11:50
PROVIDERS: ATTEND Podiatrist
DX: S82.851A Displaced trimalleolar fracture of right lower leg, initial encounter for closed fracture (principal); I10 Essential (primary) hypertension; E78.00 Pure hypercholesterolemia, unspecified; J45.909 Unspecified asthma, uncomplicated; K21.9 Gastro-esophageal reflux disease without esophagitis; F41.9 Anxiety disorder, unspecified; Z90.710 Acquired absence of both cervix and uterus; Z98.890 Other specified postprocedural states; Z79.899 Other long term (current) drug therapy; Z79.84 Long term (current) use of oral hypoglycemic drugs; Z88.0 Allergy status to penicillin; Z88.8 Allergy status to other drugs, medicaments and biological substances; Z20.822 Contact with and (suspected) exposure to COVID-19; X58.XXXA Exposure to other specified factors, initial encounter; Y93.89 Activity, other specified; Y92.89 Other specified places as the place of occurrence of the external cause; Y99.8 Other external cause status
CPT/HCPCS: 27829; 73610; 82962; 87426; A4930; A6223; A6253; A6402; A6449; A6450; C1713; C1769; J2250; J2270; J2405; J2704; J2795; J3010; J3490; 76000; A6455; J3370